=== PATIENT | male | born 1965 | race African-American/Black ===

== ENCOUNTER 2020-09-18 20:49 | Emergency (ER) | payer SELFPAY ==
[~2020-09-18] VITALS: Ht 165.1 cm; Wt 68.0 kg
[2020-09-19] MEDS ORDERED: IBUPROFEN 600 MG TAB PO ONE (04:15)
[2020-09-19] MEDS ORDERED: LIDOCAINE 5% TOPICAL PATCH TOP ONE (04:17)
[2020-09-19 10:45] VITALS: BP 124/81
== END 2020-09-19 10:57 | disposition home or self-care (01) ==
LOC: ER 20:51
DX: M54.5 Low back pain (principal)
CPT/HCPCS: 72100